=== PATIENT | male | born 2005 | race Caucasian/White ===

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

== ENCOUNTER 2025-02-03 17:35 | Emergency (ER) | payer BC, SELFPAY ==
[2025-02-03 17:37] VITALS: BP 127/64; PULSE 78; RESP 16; TEMP 36.4; O2SAT 100; BMI 25.0
--- NOTE | 2025-02-03 17:46 | EX.ED.DYSGE1 ---
HPI History of Present Illness Chief Complaint: Lower Extremity Injury Detail of Chief Complaint: Crush injury right foot Informant: patient Onset/Context/Timing Onset: Today and Hours Context: Sudden Onset Timing: Continuous Quality: Pain Location: Midfoot on the right Current Severity: Mild Maximum Severity: Moderate Worsened by: Weightbearing Relieved by: Nothing Associated Symptoms Associated Symptoms: None Narrative Narrative: Patient is a healthy 20-year-old male had a crush injury to his right foot. A skid steer came down on his foot. He removed his boot immediately. His presents because of pain and swelling. He points from the lateral to medial midfoot in the proximity of the tarsal metatarsal junction. Prior similar symptoms: No Recent Illness/Hospitalization: No PFSH PFSH Medical History no medical history no medical history Home Medications ?Medication ?Instructions ?Recorded ?Last Taken ?Type NK 02/03/25 Unknown History Allergy/AdvReac Type Severity Reaction Status Date / Time No Known Allergies Allergy Verified 02/03/25 17:39 Family History no significant family his Surgical History no surgical history no surgical history Social History household members: spouse current occupational status: employed Smoking Status: Never smoker ROS ROS ED Musculoskeletal Musculoskeletal: Denies back pain or neck pain Integumentary Reports Abrasions; Denies abscess or rash Neurologic Neurologic: Denies paresthesias or weakness Hematologic/Lymphatic Hematologic/Lymphatic: Reports systems reviewed and no addt'l complaints, except as documented EXAM Physical Exam Const Vital Signs: 02/03/25 17:37 02/03/25 18:36 02/03/25 19:00 Temperature 97.5 F L Temperature Source Oral Pulse Rate 78 74 71 Respiratory Rate 16 15 15 Blood Pressure 127/64 H 116/70 120/70 Blood Pressure Mean 85 85 86 Pulse Ox 100 100 100 Oxygen Delivery Method Room Air Positive well nourished and well developed General Appearance ED: well developed and NAD HEENT HEENT Narrative: HEENT is grossly unremarkable. Eyes PERRL and EOMs intact bilaterally Resp normal respiratory effort Cardio regular rate and regular rhythm Extremity Negative for normal to inspection Extremity Narrative: There is swelling of the right foot. There is pain the patient the proximity of the proximal metatarsals 1 through 5 and tarsal bones. DP and PT pulse are palpable. There is no pain ovation of the lateral medial malleolus. Neuro oriented x3, CN's II-XII intact bilaterally and no sensory deficits noted Psych mental status grossly normal Skin Skin Narrative: Abrasion lesser toe. There is no subungual hematoma of the great toe or lesser toes. MDM MDM MDM Narrative Medical decision making narrative: Differential diagnosis is contusion versus fracture. Will obtain x-ray. Patient was offered pain medicine. He declined. Radiography Chest X-Ray - ED: Read by ED Physician (3 views of the right foot was obtained. Patient has nondisplaced spiral fracture neck of the fourth metatarsal bone. There is a nondisplaced fracture neck second metatarsal and fractured proximal phalanx third toe there is no other abnormality noted.) Diagnostic Testing: Clinical Impression(s) from Imaging Studies Foot X-Ray 02/03/25 17:51 IMPRESSION: Acute fractures of the 2nd and 4th metatarsal necks, and 3rd proximal phalanx base. 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 Valera. Plan is digital block of the third toe straighten it out nathaniel tape the fourth toe walking boot crutches nonweightbearing and he will see patient at 9 AM tomorrow morning) Procedures Other Procedures Procedure(s): Digital block right third toe. Reduction was undertaken. Postreduction film obtained. Nurse was instructed to nathaniel tape third to the fourth toe. Postreduction film reveals proper alignment. Discharge Plan Triage Chief Complaint: Lower Extremity Injury ED Provider: Ethan Rosales Dx/Rx/DC Orders Clinical Impression: Nondisplaced fracture of second metatarsal bone of right foot, Nondisplaced fracture of fourth metatarsal bone of right foot, Fracture of proximal phalanx of lesser toe of right foot Instructions: ED Fracture, Foot, ED Closed Toe Fracture Prescriptions: No Action NK Primary Care Provider: Care Physician,No Primary Referrals: Sandeep Morrow DPM [Med Staff - Active Staff] - 02/04/25 9:00 am Ericka Cabezas MD [Non-Staff] - Activity Restrictions/Additional Instructions: 1. Apply ice to your foot 6-8 times a day. 2. Do not put any weight on your foot. 3. Elevate your foot is much as possible. Print Language: Brazilian Disposition Disposition: Home, Self Care
--- NOTE | 2025-02-03 17:51 | RAD_ITS ---
PROCEDURE: RIGHT FOOT MIN 3 VIEWS 02/03/2025 REASON FOR EXAM: INJURY/PAIN TECHNIQUE: Procedure Code: RADFO Modality: DX Procedure: FOOT MIN 3 VIEWS Laterality: Right COMPARISON: None. FINDINGS: Acute nondisplaced fracture of the 2nd metatarsal neck. Acute nondisplaced fracture at the 3rd proximal phalanx base, with medial angulation. Acute minimally displaced oblique fracture of the 4th metatarsal neck. No additional acute fracture or dislocation appreciated. Osseous midfoot alignment is maintained on these nonweightbearing radiographs. Bipartite medial sesamoid noted. Preserved joint spaces. Mild soft tissue swelling generalized about the forefoot. No radiopaque foreign body. RAD/Foot min 3 Views IMPRESSION: Acute fractures of the 2nd and 4th metatarsal necks, and 3rd proximal phalanx b ase. Reading Location: [facility]
[2025-02-03] MEDS: Lidocaine 1% (20 ml mdv) 20 ML Vial 5 ML INFILT (18:34)
[2025-02-03 18:36] VITALS: BP 116/70; PULSE 74; RESP 15; O2SAT 100
[2025-02-03 19:00] VITALS: BP 120/70; PULSE 71; RESP 15; O2SAT 100
--- NOTE | 2025-02-03 19:33 | RAD_ITS ---
PROCEDURE: RIGHT TOE(S) MIN 2 VIEWS 02/03/2025 REASON FOR EXAM: POSTREDUCTION THIRD TOE TECHNIQUE: Procedure Code: RADTO Modality: DX Procedure: TOE(S) MIN 2 VIEWS Laterality: Right COMPARISON: Earlier same day 02/03/2025. FINDINGS: Improved alignment status post closed reduction of the 3rd digit, for the aforementioned nondisplaced fracture at the 3rd proximal phalanx base. Similar alignment of the nondisplaced fracture of the 2nd metatarsal neck, and minimally displaced oblique fracture of the 4th metatarsal neck. Mild soft tissue swelling about the forefoot. RAD/Toe(s) Min 2 Views IMPRESSION: Improved alignment of the 3rd proximal phalanx base nondisplaced fracture statu s post closed reduction. Similar alignment of the 2nd and 4th metatarsal neck fractures. Reading Location: [facility]
[2025-02-03 20:03] VITALS: BP 130/83; PULSE 78; RESP 18; TEMP 36.4; O2SAT 100
== END 2025-02-03 20:04 | disposition home or self-care (01) ==
PROVIDERS: Emergency Provider Emergency Medicine; Visit Provider Emergency Medicine
DX: S92.511A Displaced fracture of proximal phalanx of right lesser toe(s), initial encounter for closed fracture (principal); S92.344A Nondisplaced fracture of fourth metatarsal bone, right foot, initial encounter for closed fracture; S92.324A Nondisplaced fracture of second metatarsal bone, right foot, initial encounter for closed fracture; W23.0XXA Caught, crushed, jammed, or pinched between moving objects, initial encounter
CPT/HCPCS: 28475; 73630; 73660; 99284